=== PATIENT | male | born 1935 | race Caucasian/White ===

== ENCOUNTER 2017-07-21 12:00 | Inpatient (IN) ==
[2017-07-23] MEDS ORDERED: Mag Hydrox/Al Hydrox/Simeth 30 ML UDC PO PRN (00:21)
[2017-07-23 05:26] LABS: Basophils % 0.4 %; Eosinophils # 0.9 K/mcL (0.0-0.6); Eosinophils % 8.2 %; Hematocrit 46.3 % (37.5-50.1); Hemoglobin 16.3 g/dL (12.9-16.9); Immature Granulocytes % 0.3 % (0-4); Lymphocytes # 1.5 K/mcL (0.6-4.6); Lymphocytes % 14.3 %; Mean Corpuscular HGB Conc 35.2 g/dL (31.6-35.5); Mean Corpuscular Hemoglobin 31.8 pg (28.0-33.3); Mean Corpuscular Volume 90.4 fL (83.0-100.0); Mean Platelet Volume 10.6 fL (9.4-12.4); Monocytes # 0.9 K/mcL (0.0-1.3); Monocytes % 8.5 %; Neutrophils # 7.2 K/mcL (1.6-8.9); Platelet Count 216 K/mcL (140-400); Red Blood Count 5.12 M/mcL (4.19-5.50); Segmented Neutrophils % 68.3 %
[2017-07-23 05:45] LABS: BUN/Creatinine Ratio 26 (6-26); Blood Urea Nitrogen 26 mg/dL (8-26); Calcium 9.5 mg/dL (8.6-10.8); Carbon Dioxide 20 mEq/L (19-29); Chloride 105 mEq/L (98-109); Glucose 170 mg/dL (70-99); Osmolality,Calculated 295 (280-300); Potassium 4.6 mEq/L (3.5-4.5); Sodium 138 mEq/L (136-145); eGFR For African Americans > 60 (> 60); eGFR For Non-African Americans > 60 (> 60)
[2017-07-23] MEDS: *HR* Heparin 5,000 UNIT/ML VIAL SQ SCH ×2 (06:17→17:58)
[2017-07-23] MEDS: Insulin LISPRO 300 UNITS/3 ML VIAL SQ SCH ×4 (07:34→20:44)
[2017-07-23 07:39] LABS: INR 1.1; Prothrombin Time 12.1 Seconds (9.4-12.1)
[2017-07-23 07:42] LABS: Activated Partial Thrombo Time 33.5 Seconds (26.0-36.0)
[2017-07-23] MEDS: *HR* Metformin 500 MG TABLET PO SCH ×2 (09:22→17:58)
[2017-07-23] MEDS: amLODIPine 5 MG TABLET PO SCH ×2 (09:23→20:47)
--- NOTE | 2017-07-23 15:51 | Internal Med History&Physical ---
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 He will continue with supportive care and therapies to maintain his progress. I encouraged him to work hard and let him know it was a good sign that he is already improving, this close to onset of stroke. Answered his and family's questions. (2) Hypertension, essential, benign Current visit: Yes Status: Chronic Continue current medications and follow VS, etc. (3) Diabetes mellitus type 2, uncomplicated Current visit: Yes Status: Acute Stable per recent history. Will continue current medications, follow serial fingerstick glucoses and use sliding scale insulin. Qualifiers: Diabetes mellitus termite inspector insulin use: without termite inspector use Qualified Code(s): E11.9 - Type 2 diabetes mellitus without complications (4) Hyperlipidemia Current visit: Yes Status: Acute Continue statin therapy. See comments in HPI, above. Qualifiers: Hyperlipidemia type: unspecified Qualified Code(s): E78.5 - Hyperlipidemia , unspecified (5) Dyspepsia Current visit: Yes Status: Acute Etiology is uncertain. Syptoms are described as mild by patient and confirmed by family. While he already has liquid antactid ordered, will continue PRN ondansetron (Zofran) and will add PPI. Internal Medicine - H&P: HPI Chief complaint: Right sided weakness. Admitted From: Hospital to Hospital Transfer Plans for Post Hospital Care: Home History of present illness: Mr. Martinez is a 81 year old male transferred here from [facility] for ongoing rehabilitation services after an acute left hemispheric stroke. He feels he is making progress since the onset of his stroke and is pleased to procede with therapy. He denies incontinence of bowel or bladder and he believes that he is not having difficulty with swallowing, coughing, or choking. He has been experiencing some nausea but this seems to have more to do with heartburn-type symptoms. He denies other issues from ROS. Interestingly, family deny hyperlipidemia but he is on statin therapy. Uncertain as to insight and/or recent addition but will manage is if he has hyperlipidemia and continue statin therapy whether for historical diagnosis or new cerebrovascular management. Past Med Surg Social Fam HX - Past Medical History Source: patient, old records reviewed, obtained from family Medical history: CVA, diabetes, hypertension Psychiatric history: no psych history - Social History Smoking Status: Unknown if ever smoked Current living situation: Home - Independent Recent Out of Country Travel Within the Last 8 Weeks: No - Family History Mother History Unknown: Yes Internal Medicine - H&P: Meds Clopidogrel [Plavix] 75 mg PO DAILY 07/23/17 [History] Insulin LISPRO [HumaLOG] 0 units SQ TIDWM 07/23/17 [History] Lisinopril [Zestril] 10 mg PO DAILY 07/23/17 [History] Lovastatin 10 mg PO DAILY 07/23/17 [History] Metformin HCl [Fortamet] 500 mg PO BIDWM 07/23/17 [History] amLODIPine [Norvasc] 5 mg PO BID 07/23/17 [History] 3 Allergy/AdvReac Type Severity Reaction Status Date / Time No Known Allergies Allergy Verified 07/23/17 00:10 All Systems PM: A 10-system review of systems was performed and is negative for pertinent findings except as documented above in the HPI. - Constitutional Vitals: Temp Pulse Resp BP Pulse Ox 98.3 F 98 18 128/67 94 07/23/17 07:59 07/23/17 07:59 07/23/17 07:59 07/23/17 07:59 07/23/17 07:59 General appearance: Present: A&O X 3 Exam: Oriented to place and situation as well as name and family members but limited memory/ orientation to details. He attributes this to his stroke. - Head Head exam: Present: atraumatic, normocephalic - Eye Eye exam: Present: PERRL, conjuntiva pink, sclera anicteric Pupils: Present: PERRL - Neck Neck exam general surgery: Present: supple, trachea midline. Absent: lymphadenopathy, thyromegaly Additional comments: No carotid bruits appreciated. - Respiratory Respiratory exam: Present: CTAB. Absent: accessory muscle use, rhonchi, wheezes Additional comments: Has bibasilar rales. - Cardiovascular Cardiovascular exam: Present: RRR. Absent: diastolic murmur, rubs, systolic murmur - GI/Abdominal GI/Abdominal exam: Present: normal bowel sounds, soft, no peritoneal signs. Absent: distended, hepatomegaly, splenomegaly, tenderness Additional comments: Obese and therefore difficult to palpate deeply. Nontender, including epigastric region. - Extremities Exam Extremities exam: Present: warm, radial pulses palpable and symmetrical. Absent : calf tenderness, cyanotic, pedal edema - Neurological Exam Neurological exam: Present: no focal deficits. Absent: pronater drift, facial droop, speech deficit Additional comments: As per history, memory is diminished for details. He can remember his birthday year but not month or day. Cannot remember his address. Knows names of family , where he is, why he's here, etc. Right upper extremity weakness is 3+/5 and his right foot dorsiflexion is about 4+/5. Has mild right facial droop. - Psychiatric Psychiatric exam: Present: normal affect, normal mood. Absent: agitated - Skin Skin exam: Present: dry, intact Internal Med - H&P Results - Labs CBC & Chem 7: 07/24/17 06:00 07/24/17 06:00 Labs: Short CBC 07/23/17 Range/Units 05:10 WBC 10.6 (4.3-11.1) K/mcL Hgb 16.3 (12.9-16.9) g/dL Hct 46.3 (37.5-50.1) % Plt Count 216 (140-400) K/mcL Neutrophils # 7.2 (1.6-8.9) K/mcL BMP 07/23/17 05:10 Sodium 138 Potassium 4.6 H Chloride 105 Carbon Dioxide 20 BUN 26 Creatinine 0.99 Glucose 170 H Calcium 9.5
[2017-07-24] MEDS ORDERED: Ondansetron ODT 4 MG TAB.RAPDIS SL PRN (01:28)
[2017-07-24] MEDS: *HR* Heparin 5,000 UNIT/ML VIAL SQ SCH ×2 (04:48→17:41)
[2017-07-24 06:17] LABS: Basophils % 0.4 %; Eosinophils # 0.6 K/mcL (0.0-0.6); Eosinophils % 5.3 %; Hematocrit 44.1 % (37.5-50.1); Hemoglobin 15.4 g/dL (12.9-16.9); Immature Granulocytes % 0.4 % (0-4); Lymphocytes # 1.7 K/mcL (0.6-4.6); Lymphocytes % 15.3 %; Mean Corpuscular HGB Conc 34.9 g/dL (31.6-35.5); Mean Corpuscular Hemoglobin 31.2 pg (28.0-33.3); Mean Corpuscular Volume 89.5 fL (83.0-100.0); Mean Platelet Volume 10.3 fL (9.4-12.4); Monocytes # 1.1 K/mcL (0.0-1.3); Monocytes % 10.2 %; Platelet Count 258 K/mcL (140-400); Red Blood Count 4.93 M/mcL (4.19-5.50); Red Cell Distribution Width 12.1 % (11.5-14.5); Segmented Neutrophils % 68.4 %
[2017-07-24 06:20] LABS: Neutrophils # 7.7 K/mcL (1.6-8.9)
[2017-07-24 06:27] LABS: BUN/Creatinine Ratio 26 (6-26); Blood Urea Nitrogen 26 mg/dL (8-26); Calcium 9.3 mg/dL (8.6-10.8); Carbon Dioxide 19 mEq/L (19-29); Chloride 103 mEq/L (98-109); Glucose 164 mg/dL (70-99); Osmolality,Calculated 288 (280-300); Potassium 4.6 mEq/L (3.5-4.5); Sodium 135 mEq/L (136-145); eGFR For African Americans > 60 (> 60); eGFR For Non-African Americans > 60 (> 60)
[2017-07-24 09:12] LABS: Albumin 2.9 g/dL (3.5-5.0); Albumin/Globulin Ratio 0.7 (1.1-2.2); Bilirubin,Direct 0.2 mg/dL (0.0-0.5); Bilirubin,Indirect 0.4 mg/dL (0.0-1.2); Bilirubin,Total 0.6 mg/dL (0.2-1.2); Globulin 3.9 g/dL (2.4-3.5); Total Protein 6.8 g/dL (6.0-8.3)
[2017-07-24] MEDS: *HR* Metformin 500 MG TABLET PO SCH ×2 (09:54→17:41)
[2017-07-24] MEDS: amLODIPine 5 MG TABLET PO SCH ×2 (09:54→22:47)
[2017-07-24] MEDS: Insulin LISPRO 300 UNITS/3 ML VIAL SQ SCH ×4 (09:54→22:47)
--- NOTE | 2017-07-24 13:32 | Internal Med Progress Note ---
Date of Encounter: 07/24/17 Time of Encounter: 13:30 (All in addition to hemiplegia patient has significant cognitive deficits. He will answer his full name sometimes but if you say his first name and ask was last name is he cannot do that. He cannot comprehend so he definitely has some shoes along with occasional expressive. He is not oriented towards time place and location name or any of that. 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 Current Visit: Yes Status: Acute Assessment and plan: Evening CVA which I said causes a right hemiplegia and certainly there are cognitive deficits (2) Hypertension, essential, benign Current Visit: Yes Status: Chronic Assessment and plan: Blood pressure is well controlled (3) Diabetes mellitus type 2, uncomplicated Current Visit: Yes Status: Acute Assessment and plan: Following blood sugars Qualifiers: Diabetes mellitus assisted insulin use: without intermodal owner operator truck driver use Qualified Code(s): E11.9 - Type 2 diabetes mellitus without complications (4) Hyperlipidemia Current Visit: Yes Status: Acute Assessment and plan: This is noted history Qualifiers: Hyperlipidemia type: unspecified Qualified Code(s): E78.5 - Hyperlipidemia , unspecified (5) Dyspepsia Current Visit: Yes Status: Acute Assessment and plan: Occasional of dyspepsia complaints - Time Spent With Patient less than 15 minutes - Subjective Interval history: Patient in addition to his hemiplegia has cognitive disease. He is unable to be oriented towards name person place date etc. - Constitutional Vitals: Temp Pulse Resp BP Pulse Ox 97.3 F L 76 16 155/99 92 07/24/17 11:43 07/24/17 11:43 07/24/17 11:43 07/24/17 11:43 07/24/17 11:43 General appearance: Present: A&O X 3 - Head Head exam: Present: atraumatic, normal inspection, normocephalic - Neck Neck exam general surgery: Present: supple, trachea midline. Absent: lymphadenopathy - Respiratory Respiratory exam: Present: CTAB. Absent: accessory muscle use, rales, rhonchi, wheezes - Cardiovascular Cardiovascular exam: Present: RRR, +S1, +S2. Absent: diastolic murmur, gallop, rubs, systolic murmur - Neurological Exam Neurological exam: Present: CN II-XII intact, oriented X3, no focal deficits. Absent: pronater drift, facial droop, speech deficit Additional comments: She has a right hemiplegia. He also has right-sided neglect Internal Medicine: Result - Labs CBC & Chem 7: 07/24/17 06:00 07/24/17 06:00 Labs: Short CBC 07/24/17 Range/Units 06:00 WBC 11.2 H (4.3-11.1) K/mcL Hgb 15.4 (12.9-16.9) g/dL Hct 44.1 (37.5-50.1) % Plt Count 258 (140-400) K/mcL Neutrophils # 7.7 (1.6-8.9) K/mcL BMP 07/24/17 06:00 Sodium 135 L Potassium 4.6 H Chloride 103 Carbon Dioxide 19 BUN 26 Creatinine 1.01 Glucose 164 H Calcium 9.3 Liver Function 07/24/17 Range/Units 06:40 Total Bilirubin 0.6 (0.2-1.2) mg/dL Direct Bilirubin 0.2 (0.0-0.5) mg/dL AST 34 (5-34) Units/L ALT 21 (0-55) Units/L Alkaline Phosphatase 95 (38-126) Units/L Albumin 2.9 L (3.5-5.0) g/dL Lab looks decent - ABG Interpretation ABG results: PT/INR, D-dimer PT 12.1 Seconds (9.4-12.1) 07/23/17 07:10 Consult Discharge Plan - Plan Referrals: Jp Yan MD [Primary Care Provider] -
[2017-07-25] MEDS: *HR* Heparin 5,000 UNIT/ML VIAL SQ SCH ×2 (05:39→17:09)
[2017-07-25] MEDS: *HR* Metformin 500 MG TABLET PO SCH ×2 (08:51→17:09)
[2017-07-25] MEDS: Insulin LISPRO 300 UNITS/3 ML VIAL SQ SCH ×4 (08:51→22:44)
[2017-07-25] MEDS: amLODIPine 5 MG TABLET PO SCH ×2 (08:51→22:44)
--- NOTE | 2017-07-25 11:47 | Internal Med Progress Note ---
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 (2) Hypertension, essential, benign Current Visit: Yes Status: Chronic Assessment and plan: Blood pressure is well controlled at the moment (3) Diabetes mellitus type 2, uncomplicated Current Visit: Yes Status: Acute Qualifiers: Diabetes mellitus adjunct faculty for medical terminology insulin use: without adjunct faculty for medical terminology use Qualified Code(s): E11.9 - Type 2 diabetes mellitus without complications (4) Hyperlipidemia Current Visit: Yes Status: Acute Assessment and plan: By history Qualifiers: Hyperlipidemia type: unspecified Qualified Code(s): E78.5 - Hyperlipidemia , unspecified (5) Dyspepsia Current Visit: Yes Status: Acute Assessment and plan: No current complaints of epigastric pain or dyspepsia - Time Spent With Patient less than 15 minutes - Subjective Interval history: Patient in addition to his hemiplegia has cognitive disease. He is unable to be oriented towards name person place date etc. see speech notes. - Constitutional Vitals: Temp Pulse Resp BP Pulse Ox 98.8 F 96 16 126/75 94 07/25/17 07:28 07/25/17 07:28 07/25/17 07:28 07/25/17 07:28 07/25/17 07:28 General appearance: Present: A&O X 3 - Head Head exam: Present: atraumatic, normal inspection, normocephalic - Neck Neck exam general surgery: Present: supple, trachea midline. Absent: lymphadenopathy - Respiratory Respiratory exam: Present: CTAB. Absent: accessory muscle use, rales, rhonchi, wheezes - Cardiovascular Cardiovascular exam: Present: RRR, +S1, +S2. Absent: diastolic murmur, gallop, rubs, systolic murmur - GI/Abdominal GI/Abdominal exam: Present: normal bowel sounds, soft, no peritoneal signs. Absent: distended, tenderness - Neurological Exam Neurological exam: Present: abnormal gait, altered, CN II-XII intact, motor sensory deficit, oriented X3, no focal deficits. Absent: pronater drift, facial droop, speech deficit Additional comments: Speech is slow and deliberate. In speech reports to us that cognitively the patient is not intact Internal Medicine: Result - Labs CBC & Chem 7: 07/24/17 06:00 07/24/17 06:00 Labs: Lab looks stable - ABG Interpretation ABG results: PT/INR, D-dimer PT 12.1 Seconds (9.4-12.1) 07/23/17 07:10 Consult Discharge Plan - Plan Referrals: Jp Yan MD [Primary Care Provider] -
[2017-07-26] MEDS: *HR* Heparin 5,000 UNIT/ML VIAL SQ SCH ×2 (06:39→17:20)
[2017-07-26] MEDS: Insulin LISPRO 300 UNITS/3 ML VIAL SQ SCH ×4 (08:58→20:55)
[2017-07-26] MEDS: *HR* Metformin 500 MG TABLET PO SCH ×2 (08:59→17:20)
[2017-07-26] MEDS: amLODIPine 5 MG TABLET PO SCH ×2 (08:59→20:53)
--- NOTE | 2017-07-26 14:01 | Physcial Medicine-Consult Note ---
Date of Encounter: 07/26/17 Time of Encounter: 13:56 Physical Medicine - AP (1) CVA (cerebral vascular accident) Status: Acute Assessment and plan: 1. Mr. Martinez is suffering from significant impairment due to his CVA. Per therapy, he is currently max A for ADLs, bed transfers and mobility. He has initiated some movement in the right upper limb. He has cognitive impairment and is disoriented at times. He is 80% accurate for yes/no questions. We will continue with intensive PT/ST/OT/ and TR to address endurance, transfers, gait, safety, ADLs and cognition. ANTONIO 08/23/17. Code(s): I63.9 - Cerebral infarction, unspecified SNOMED Code(s): 523101101 Physical Medicine - HPI - Data of Consult Consult date: 07/26/17 Requesting Physician: Teofilo Ng DO Primary Care Provider: Jp Yan - Consult Narrative Reason for consult: CVA History of present illness: Mr. Martinez is a 81 year old male who presented to [facility] 07/[facility]/17 after being discovered by his daughter in bed. He was unable to speak with right sided weakness. He was last seen at 9pm the night prior and had no deficits at that time. Initial head CT revealed a subacute left occipital infarct, no hemorrhage. An mri of his brain revealed an acute cortical infarction involving the left CAREER AND GUIDANCE COUNSELOR territory-including the left temporal and occipital lobes and left thalamus. Patient was stabilized and transferred for inpatient rehabilitation. CC: Teofilo Ng DO Past Med Surg Social Fam HX - Past Medical History Medical history: CVA, diabetes, hypertension Psychiatric history: no psych history - Social History Smoking Status: Unknown if ever smoked - Family History Mother History Unknown: Yes Medications and Allergies Clopidogrel [Plavix] 75 mg PO DAILY 07/23/17 [History] Insulin LISPRO [HumaLOG] 0 units SQ TIDWM 07/23/17 [History] Lisinopril [Zestril] 10 mg PO DAILY 07/23/17 [History] Lovastatin 10 mg PO DAILY 07/23/17 [History] Metformin HCl [Fortamet] 500 mg PO BIDWM 07/23/17 [History] amLODIPine [Norvasc] 5 mg PO BID 07/23/17 [History] 3 Allergy/AdvReac Type Severity Reaction Status Date / Time No Known Allergies Allergy Verified 07/23/17 00:10 ROS unobtainable: due to mental status Physical Medicine - Exam - Constitutional Vitals: Temp Pulse Resp BP Pulse Ox 97.3 F L 79 16 101/67 95 07/26/17 08:00 07/26/17 08:00 07/26/17 08:00 07/26/17 08:00 07/26/17 08:00 Exam: Patient is somnolent, rousable. He does not verbally respond to questions or commands. - Head Head exam: Present: atraumatic, normal inspection - Respiratory Respiratory exam: Present: CTAB - Cardiovascular Cardiovascular exam: Present: RRR - GI/Abdominal GI/Abdominal exam: Present: normal bowel sounds, soft. Absent: tenderness - Extremities Exam Extremities exam: Present: tenderness. Absent: calf tenderness Additional comments: No edema, no erythema. Patient too somnolent to participate with muscle strength testing. Physical Medicine - Results - Labs CBC & Chem 7: 07/24/17 06:00 07/24/17 06:00 Consult Discharge Plan - Plan Referrals: Jp Yan MD [Primary Care Provider] -
--- NOTE | 2017-07-26 14:16 | Psychological Evaluation ---
Date of Encounter: 07/26/17 Time of Encounter: 10:30 History of Present Illness History of present illness: Mr. Martinez is a 81 year old male who suffered a CVA secondary to occlusion of the left middle cerebtal artery. Past Medical History - Psychiatric History Psychiatric history: Reports: no psych history (PMH includes HTN diabetes, HCL and dyspepsia.) Home Medications and Allergies Clopidogrel [Plavix] 75 mg PO DAILY 07/23/17 [History] Insulin LISPRO [HumaLOG] 0 units SQ TIDWM 07/23/17 [History] Lisinopril [Zestril] 10 mg PO DAILY 07/23/17 [History] Lovastatin 10 mg PO DAILY 07/23/17 [History] Metformin HCl [Fortamet] 500 mg PO BIDWM 07/23/17 [History] amLODIPine [Norvasc] 5 mg PO BID 07/23/17 [History] 3 Allergy/AdvReac Type Severity Reaction Status Date / Time No Known Allergies Allergy Verified 07/23/17 00:10 Social History - Alcohol Use Alcohol Use: unknown (The patient was minimally responsive during clinical interview. He was not able to report social, occupational or educational histories.) Cognitive/Emotional Assessment - Cognitive Ability Level of Alertness: Lethargic (The patient was not oriented to time or place. He did not know how long he was or how many children he had. Recent and remote memories were very poor.) Assessment & Plan - Prognosis Prognosis: Fair (Minimal responsivity precludes assessment of subsequent treatment at this time.)
[2017-07-27] MEDS: *HR* Heparin 5,000 UNIT/ML VIAL SQ SCH ×2 (05:12→17:06)
[2017-07-27] MEDS: Insulin LISPRO 300 UNITS/3 ML VIAL SQ SCH ×4 (07:28→22:14)
[2017-07-27] MEDS: amLODIPine 5 MG TABLET PO SCH ×2 (09:06→19:55)
[2017-07-27] MEDS: *HR* Metformin 500 MG TABLET PO SCH ×2 (09:07→17:06)
--- NOTE | 2017-07-27 11:54 | Internal Med Progress Note ---
Date of Encounter: 07/27/17 Time of Encounter: 11:52 - Assessment and plan (1) Stroke due to occlusion of left middle cerebral artery Current Visit: Yes Status: Acute Assessment and plan: Short of PT OT TR and speech. (2) Hypertension, essential, benign Current Visit: Yes Status: Chronic Assessment and plan: On exception blood pressure been very stable (3) Diabetes mellitus type 2, uncomplicated Current Visit: Yes Status: Acute Assessment and plan: Blood sugars are doing well. There Qualifiers: Diabetes mellitus skilled nursing insulin use: without termite control service representative use Qualified Code(s): E11.9 - Type 2 diabetes mellitus without complications (4) Hyperlipidemia Current Visit: Yes Status: Acute Assessment and plan: By history Qualifiers: Hyperlipidemia type: unspecified Qualified Code(s): E78.5 - Hyperlipidemia , unspecified (5) Dyspepsia Current Visit: Yes Status: Acute Assessment and plan: No current reports of problems - Time Spent With Patient less than 15 minutes - Subjective Interval history: Patient in addition to his hemiplegia has cognitive disease. He is unable to be oriented towards name person place date etc. see speech notes. Working daily with PT OT and TR. Along with our speech therapist. Is ambulating the mckeon walker now which is fairly significant improvement - Constitutional Vitals: Temp Pulse Resp BP Pulse Ox 97.3 F L 80 16 114/64 93 07/27/17 08:00 07/27/17 08:00 07/27/17 08:00 07/27/17 11:17 07/27/17 08:00 General appearance: Present: A&O X 3 - Head Head exam: Present: atraumatic, normal inspection, normocephalic - Neck Neck exam general surgery: Present: supple, trachea midline. Absent: lymphadenopathy - Respiratory Respiratory exam: Present: CTAB. Absent: accessory muscle use, rales, rhonchi, wheezes - Cardiovascular Cardiovascular exam: Present: RRR, +S1, +S2. Absent: diastolic murmur, gallop, rubs, systolic murmur Internal Medicine: Result - Labs CBC & Chem 7: 07/24/17 06:00 07/24/17 06:00 Labs: Labs look stable - ABG Interpretation ABG results: PT/INR, D-dimer PT 12.1 Seconds (9.4-12.1) 07/23/17 07:10 Consult Discharge Plan - Plan Referrals: Jp Yan MD [Primary Care Provider] -
[2017-07-28] MEDS: *HR* Heparin 5,000 UNIT/ML VIAL SQ SCH ×2 (05:07→17:04)
[2017-07-28] MEDS: Insulin LISPRO 300 UNITS/3 ML VIAL SQ SCH ×4 (09:28→21:59)
[2017-07-28] MEDS: amLODIPine 5 MG TABLET PO SCH ×2 (09:55→21:57)
[2017-07-28] MEDS: *HR* Metformin 500 MG TABLET PO SCH ×2 (09:55→17:04)
--- NOTE | 2017-07-28 14:18 | Internal Med Progress Note ---
Date of Encounter: 07/28/17 Time of Encounter: 14:16 - Assessment and plan (1) Stroke due to occlusion of left middle cerebral artery Current Visit: Yes Status: Acute Assessment and plan: Status significant [place] with cognitive and dysphonia. Her slow response (2) Hypertension, essential, benign Current Visit: Yes Status: Chronic Assessment and plan: Pressures control (3) Diabetes mellitus type 2, uncomplicated Current Visit: Yes Status: Acute Assessment and plan: Blood sugars are followed Qualifiers: Diabetes mellitus fpc insulin use: without fpc use Qualified Code(s): E11.9 - Type 2 diabetes mellitus without complications (4) Hyperlipidemia Current Visit: Yes Status: Acute Qualifiers: Hyperlipidemia type: unspecified Qualified Code(s): E78.5 - Hyperlipidemia , unspecified (5) Dyspepsia Current Visit: Yes Status: Acute Assessment and plan: Not clear the extent of this. - Time Spent With Patient less than 15 minutes - Subjective Interval history: Patient in addition to his hemiplegia has cognitive disease. He is unable to be oriented towards name person place date etc. see speech notes. Working daily with PT OT and TR. Along with our speech therapist. Is ambulating the mckeon walker now which is fairly significant improvement. - Constitutional Vitals: Temp Pulse Resp BP Pulse Ox 97.6 F 63 16 114/71 95 07/28/17 06:50 07/28/17 06:50 07/28/17 06:50 07/28/17 06:50 07/28/17 06:50 General appearance: Present: A&O X 3 - Head Head exam: Present: atraumatic, normal inspection, normocephalic - Neck Neck exam general surgery: Present: supple, trachea midline. Absent: lymphadenopathy - Respiratory Respiratory exam: Present: CTAB. Absent: accessory muscle use, rales, rhonchi, wheezes - Cardiovascular Cardiovascular exam: Present: RRR, +S1, +S2. Absent: diastolic murmur, gallop, rubs, systolic murmur Internal Medicine: Result - Labs CBC & Chem 7: 07/24/17 06:00 07/24/17 06:00 Labs: Lab is stable - ABG Interpretation ABG results: PT/INR, D-dimer PT 12.1 Seconds (9.4-12.1) 07/23/17 07:10 - VTE Documentation of Mechanical Device: Graduated compression elastic hosiery Consult Discharge Plan - Plan Referrals: Jp Yan MD [Primary Care Provider] -
[2017-07-29] MEDS: *HR* Heparin 5,000 UNIT/ML VIAL SQ SCH ×2 (05:32→17:28)
[2017-07-29] MEDS: Insulin LISPRO 300 UNITS/3 ML VIAL SQ SCH ×4 (08:09→21:32)
[2017-07-29] MEDS: amLODIPine 5 MG TABLET PO SCH ×2 (08:09→21:34)
[2017-07-29] MEDS: *HR* Metformin 500 MG TABLET PO SCH ×2 (08:10→17:29)
--- NOTE | 2017-07-29 13:30 | Internal Med Progress Note ---
Date of Encounter: 07/29/17 Time of Encounter: 13:25 - Assessment and plan (1) Stroke due to occlusion of left middle cerebral artery Current Visit: Yes Status: Acute Assessment and plan: Status significant [place] with cognitive and dysphonia. Slow response. Continue to work with therapists. (2) Hypertension, essential, benign Current Visit: Yes Status: Chronic Assessment and plan: Continue current regimen. (3) Diabetes mellitus type 2, uncomplicated Current Visit: Yes Status: Acute Assessment and plan: Continue current regimen. Qualifiers: Diabetes mellitus terminal operator insulin use: without terminal operator use Qualified Code(s): E11.9 - Type 2 diabetes mellitus without complications - Time Spent With Patient less than 15 minutes - Subjective Interval history: Feeling "alright." No particular complaints. - Constitutional Vitals: Temp Pulse Resp BP Pulse Ox 97.9 F 88 16 107/63 93 07/29/17 07:26 07/29/17 07:26 07/29/17 07:26 07/29/17 07:26 07/29/17 07:26 General appearance: Present: A&O X 3 Exam: Gen: Resting comfortably in bed. Alert and answering most questions appropriately. NAD. HEENT: NCAT. Neck: No palpable lymphadenopathy or thyromegaly. CV: RRR, S1S2. 2/6, systolic murmur appreciated. Capillary refill < 2 seconds. Pulm: CTAB. Abd: (+)BS. NDNT. Neuro: RUE and RLE weakness noted. Skin: No rash. Ext: No pitting edema. Internal Medicine: Result - Labs CBC & Chem 7: 07/24/17 06:00 07/24/17 06:00 - ABG Interpretation ABG results: PT/INR, D-dimer PT 12.1 Seconds (9.4-12.1) 07/23/17 07:10 - VTE Documentation of Mechanical Device: Graduated compression elastic hosiery Consult Discharge Plan - Plan Referrals: Jp Yan MD [Primary Care Provider] -
[2017-07-30] MEDS: *HR* Heparin 5,000 UNIT/ML VIAL SQ SCH ×2 (05:52→16:57)
[2017-07-30] MEDS: Insulin LISPRO 300 UNITS/3 ML VIAL SQ SCH ×4 (09:00→21:00)
[2017-07-30] MEDS: *HR* Metformin 500 MG TABLET PO SCH ×2 (09:02→16:57)
[2017-07-30] MEDS: amLODIPine 5 MG TABLET PO SCH ×2 (09:02→21:18)
--- NOTE | 2017-07-30 11:30 | Internal Med Progress Note ---
Date of Encounter: 07/30/17 Time of Encounter: 10:40 - Assessment and plan (1) Stroke due to occlusion of left middle cerebral artery Current Visit: Yes Status: Acute Assessment and plan: Status significant [place] with cognitive and dysphonia. Slow response. Continue to work with therapists. (2) Hypertension, essential, benign Current Visit: Yes Status: Chronic Assessment and plan: Continue current regimen. (3) Diabetes mellitus type 2, uncomplicated Current Visit: Yes Status: Acute Assessment and plan: Continue current regimen. Qualifiers: Diabetes mellitus petroleum terminal plant operator insulin use: without petroleum terminal plant operator use Qualified Code(s): E11.9 - Type 2 diabetes mellitus without complications - Subjective Interval history: Feeling "alright." No particular complaints/concerns. No pain. - Constitutional Vitals: Temp Pulse Resp BP Pulse Ox 97.6 F 78 15 118/68 94 07/30/17 08:00 07/30/17 08:00 07/30/17 08:00 07/30/17 08:00 07/30/17 08:00 General appearance: Present: A&O X 3 Exam: Gen: Resting comfortably in bed. Alert and answering most questions appropriately. NAD. HEENT: NCAT. Neck: No palpable lymphadenopathy or thyromegaly. CV: RRR, S1S2. 2/6, systolic murmur appreciated. Capillary refill < 2 seconds. Pulm: CTAB. Abd: (+)BS. NDNT. Neuro: RUE and RLE weakness noted. Skin: No rash. Ext: No pitting edema. Internal Medicine: Result - Labs CBC & Chem 7: 07/24/17 06:00 07/24/17 06:00 - ABG Interpretation ABG results: PT/INR, D-dimer PT 12.1 Seconds (9.4-12.1) 07/23/17 07:10 - VTE Documentation of Mechanical Device: Graduated compression elastic hosiery Consult Discharge Plan - Plan Referrals: Jp Yan MD [Primary Care Provider] -
[2017-07-30] MEDS: Acetaminophen 325 MG TABLET PO PRN (21:22)
[2017-07-31] MEDS: *HR* Heparin 5,000 UNIT/ML VIAL SQ SCH ×2 (05:07→17:22)
[2017-07-31 05:46] LABS: Basophils # 0.1 K/mcL (0.0-0.2); Basophils % 0.5 %; Eosinophils # 0.8 K/mcL (0.0-0.6); Eosinophils % 7.3 %; Hematocrit 45.6 % (37.5-50.1); Hemoglobin 15.6 g/dL (12.9-16.9); Immature Granulocytes % 0.7 % (0-4); Lymphocytes # 2.3 K/mcL (0.6-4.6); Lymphocytes % 20.5 %; Mean Corpuscular HGB Conc 34.2 g/dL (31.6-35.5); Mean Corpuscular Hemoglobin 31.6 pg (28.0-33.3); Mean Corpuscular Volume 92.5 fL (83.0-100.0); Mean Platelet Volume 10.6 fL (9.4-12.4); Monocytes % 9.1 %; Neutrophils # 6.9 K/mcL (1.6-8.9); Platelet Count 303 K/mcL (140-400); Red Blood Count 4.93 M/mcL (4.19-5.50); Red Cell Distribution Width 12.7 % (11.5-14.5); Segmented Neutrophils % 61.9 %
[2017-07-31 06:00] LABS: Calcium 9.8 mg/dL (8.6-10.8); Potassium 5.6 mEq/L (3.5-4.5)
[2017-07-31] MEDS: Insulin LISPRO 300 UNITS/3 ML VIAL SQ SCH ×4 (08:09→21:08)
[2017-07-31] MEDS: *HR* Metformin 500 MG TABLET PO SCH ×2 (08:09→17:22)
[2017-07-31] MEDS: amLODIPine 5 MG TABLET PO SCH ×2 (08:09→21:09)
--- NOTE | 2017-07-31 14:14 | Internal Med Progress Note ---
Date of Encounter: 07/31/17 Time of Encounter: 14:12 - Assessment and plan (1) Stroke due to occlusion of left middle cerebral artery Current Visit: Yes Status: Acute (2) Hypertension, essential, benign Current Visit: No Status: Chronic Assessment and plan: Blood pressures well controlled (3) Diabetes mellitus type 2, uncomplicated Current Visit: Yes Status: Acute Assessment and plan: Following blood sugar Qualifiers: Diabetes mellitus director long term care insulin use: without long-term use Qualified Code(s): E11.9 - Type 2 diabetes mellitus without complications (4) Hyperlipidemia Current Visit: Yes Status: Acute Assessment and plan: Noted by his Qualifiers: Hyperlipidemia type: unspecified Qualified Code(s): E78.5 - Hyperlipidemia , unspecified (5) Dyspepsia Current Visit: Yes Status: Acute Assessment and plan: No current complaint noted - Time Spent With Patient less than 15 minutes - Subjective Interval history: Patient has significant symptoms of cerebrovascular disease. Ischemic CVA. Significant neglect to the affected side. Cognitively he is not intact - Constitutional Vitals: Temp Pulse Resp BP Pulse Ox 97.7 F 87 18 111/54 92 07/31/17 07:48 07/31/17 07:48 07/30/17 19:32 07/31/17 07:48 07/31/17 07:48 General appearance: Present: A&O X 3 - Head Head exam: Present: atraumatic, normal inspection, normocephalic - Neck Neck exam general surgery: Present: supple, trachea midline. Absent: lymphadenopathy - Respiratory Respiratory exam: Present: CTAB. Absent: accessory muscle use, rales, rhonchi, wheezes - Cardiovascular Cardiovascular exam: Present: RRR, +S1, +S2. Absent: diastolic murmur, gallop, rubs, systolic murmur - GI/Abdominal GI/Abdominal exam: Present: normal bowel sounds, soft, no peritoneal signs. Absent: distended, tenderness Internal Medicine: Result - Labs CBC & Chem 7: 07/31/17 05:20 07/31/17 05:20 Labs: Short CBC 07/31/17 Range/Units 05:20 WBC 11.2 H (4.3-11.1) K/mcL Hgb 15.6 (12.9-16.9) g/dL Hct 45.6 (37.5-50.1) % Plt Count 303 (140-400) K/mcL Neutrophils # 6.9 (1.6-8.9) K/mcL BMP 07/31/17 05:20 Sodium 139 Potassium 5.6 H Chloride 105 Carbon Dioxide 24 BUN 44 H Creatinine 1.56 H Glucose 159 H Calcium 9.8 Need to follow BUN and creatinine. - ABG Interpretation ABG results: PT/INR, D-dimer PT 12.1 Seconds (9.4-12.1) 07/23/17 07:10 - VTE Documentation of Mechanical Device: Graduated compression elastic hosiery Consult Discharge Plan - Plan Referrals: Jp Yan MD [Primary Care Provider] -
[2017-07-31] MEDS: Acetaminophen 325 MG TABLET PO PRN (21:09)
[2017-08-01] MEDS: *HR* Heparin 5,000 UNIT/ML VIAL SQ SCH ×2 (05:32→17:04)
[2017-08-01 05:56] LABS: Calcium 9.4 mg/dL (8.6-10.8)
[2017-08-01] MEDS: Insulin LISPRO 300 UNITS/3 ML VIAL SQ SCH ×4 (09:04→20:23)
[2017-08-01] MEDS: amLODIPine 5 MG TABLET PO SCH ×2 (09:09→20:01)
[2017-08-01] MEDS: *HR* Metformin 500 MG TABLET PO SCH ×2 (09:10→17:04)
--- NOTE | 2017-08-01 15:46 | Internal Med Progress Note ---
Date of Encounter: 08/01/17 Time of Encounter: 15:44 - Assessment and plan (1) Stroke due to occlusion of left middle cerebral artery Current Visit: Yes Status: Acute Assessment and plan: No significant bit of change. He is working steadily with the therapist (2) Hypertension, essential, benign Current Visit: No Status: Chronic Assessment and plan: Blood pressure is well controlled (3) Diabetes mellitus type 2, uncomplicated Current Visit: Yes Status: Acute Assessment and plan: Following blood sugars Qualifiers: Diabetes mellitus dedicated intermodal truck driver insulin use: without dedicated intermodal truck driver use Qualified Code(s): E11.9 - Type 2 diabetes mellitus without complications (4) Hyperlipidemia Current Visit: Yes Status: Acute Assessment and plan: Other risk factor is chronic Qualifiers: Hyperlipidemia type: unspecified Qualified Code(s): E78.5 - Hyperlipidemia , unspecified (5) Dyspepsia Current Visit: Yes Status: Acute Assessment and plan: No complaints currently - Time Spent With Patient less than 15 minutes - Subjective Interval history: He still very slow and slow responding. He occasionally gets irritated when the staff insists upon him moving his leg etc. - Constitutional Vitals: Temp Pulse Resp BP Pulse Ox 97.8 F 95 16 121/72 93 08/01/17 07:44 08/01/17 07:44 07/31/17 19:00 08/01/17 07:44 08/01/17 07:44 General appearance: Present: A&O X 3 - Head Head exam: Present: atraumatic, normal inspection, normocephalic - Neck Neck exam general surgery: Present: supple, trachea midline. Absent: lymphadenopathy - Respiratory Respiratory exam: Present: CTAB. Absent: accessory muscle use, rales, rhonchi, wheezes - Cardiovascular Cardiovascular exam: Present: RRR, +S1, +S2. Absent: diastolic murmur, gallop, rubs, systolic murmur - GI/Abdominal GI/Abdominal exam: Present: normal bowel sounds, soft, no peritoneal signs. Absent: distended, tenderness Internal Medicine: Result - Labs CBC & Chem 7: 07/31/17 05:20 08/01/17 05:25 Labs: BMP 08/01/17 05:25 Sodium 135 L Potassium 5.0 H Chloride 102 Carbon Dioxide 25 BUN 46 H Creatinine 1.53 H Glucose 151 H Calcium 9.4 Watch BUN and creatinine - ABG Interpretation ABG results: PT/INR, D-dimer PT 12.1 Seconds (9.4-12.1) 07/23/17 07:10 - VTE Documentation of Mechanical Device: Graduated compression elastic hosiery Consult Discharge Plan - Plan Referrals: Jp Yan MD [Primary Care Provider] -
[2017-08-01] MEDS: Acetaminophen 325 MG TABLET PO PRN (17:04)
[2017-08-02] MEDS: *HR* Heparin 5,000 UNIT/ML VIAL SQ SCH ×2 (05:16→19:04)
[2017-08-02] MEDS: Insulin LISPRO 300 UNITS/3 ML VIAL SQ SCH ×4 (08:26→21:53)
[2017-08-02] MEDS: *HR* Metformin 500 MG TABLET PO SCH ×2 (08:26→19:04)
[2017-08-02] MEDS: amLODIPine 5 MG TABLET PO SCH ×2 (08:26→21:56)
--- NOTE | 2017-08-02 12:53 | Rehab Psychology Progress Note ---
Date of Encounter: 08/02/17 Time of Encounter: 12:30 Subjective - Symptoms Symptoms: Patient was not oriented to time, place or purpose. He was not sure if he had a CVA. Responses were inconsistent. He was not able to initiate or sustain conversation. Objective - WHODAS Functional Impairment Concentration, Problem-solving, Communication: None (Cognition was sustanially impaired. The patient was not able to respond appropriately to questions.) Assessment and Plan - Response to Treatment Response to Treatment: Improved (Mr. Martinez is not an appropriate candidate for any level of psychotherapy. Will monitor for improvement and intervene when appropriate.)
--- NOTE | 2017-08-02 13:44 | Physical Med Progress Note ---
Date of Encounter: 08/03/17 Time of Encounter: 13:32 Assessment and Plan (1) CVA (cerebral vascular accident) Current Visit: Yes Status: Acute Qualifiers: CVA mechanism: unspecified Qualified Code(s): I63.9 - Cerebral infarction, unspecified Physical Medicine-PN: Subj Interval history: PMR PCC Note Mr. Martinez is suffering from irritation from his adult diaper. Suspect allergic reaction. He is focused on his pain while seated in a wheelchair. Patient able to roll to side with min A, mod A to scoot on therapy table. Sit to stand is max A with verbal cues. He requires maxA for wheelchair positioning. Patient is oriented to person and month. Plan to continue with therapies. He has made minimal progress. We will change his discharge date to 08/09/17. - Constitutional Vitals: Vital Signs Temp Pulse Resp BP Pulse Ox 08/02/17 08:00 98.2 F 91 15 97/61 92 08/01/17 20:14 97.8 F 75 16 102/56 96 Intake and Output 08/01/17 08/02/17 08/02/17 23:59 07:59 15:59 Intake Total 120 / 120 340 / 340 Balance 120 / 120 340 / 340 Intake: Oral 120 / 120 340 / 340 Other: Meal Dinner Lunch Percent of Meal Consumed 20% 50% Stool Size Large Stool Consistency loose Stool Color Brown # Urine Diapers 1 1 # Bowel Movement Diapers 1 Blood Glucose* 154 172 Physical Medicine-PN: Obj Data - Labs CBC & Chem 7: 07/31/17 05:20 08/01/17 05:25 Labs: Laboratory Results - last 24 hr 08/01/17 08/01/17 08/02/17 16:12 20:22 11:13 POC Glucose 144 H 154 H 172 H - ABG Interpretation ABG results: PT/INR, D-dimer PT 12.1 Seconds (9.4-12.1) 07/23/17 07:10 - VTE Documentation of Mechanical Device: Graduated compression elastic hosiery Consult Discharge Plan - Plan Referrals: Jp Yan MD [Primary Care Provider] -
[2017-08-03] MEDS: *HR* Heparin 5,000 UNIT/ML VIAL SQ SCH ×2 (06:07→18:01)
[2017-08-03] MEDS: Insulin LISPRO 300 UNITS/3 ML VIAL SQ SCH ×4 (09:03→23:05)
[2017-08-03] MEDS: *HR* Metformin 500 MG TABLET PO SCH ×2 (09:05→18:01)
[2017-08-03] MEDS: amLODIPine 5 MG TABLET PO SCH ×2 (09:05→23:02)
--- NOTE | 2017-08-03 14:08 | Internal Med Progress Note ---
Date of Encounter: 08/03/17 Time of Encounter: 14:06 - Assessment and plan (1) Stroke due to occlusion of left middle cerebral artery Current Visit: Yes Status: Acute Assessment and plan: very significant ischemic CVA (2) Hypertension, essential, benign Current Visit: No Status: Chronic Assessment and plan: Blood pressure is well controlled (3) Diabetes mellitus type 2, uncomplicated Current Visit: Yes Status: Acute Assessment and plan: Following blood sugar Qualifiers: Diabetes mellitus superintendent terminal insulin use: without chcf use Qualified Code(s): E11.9 - Type 2 diabetes mellitus without complications (4) Hyperlipidemia Current Visit: Yes Status: Acute Assessment and plan: History Qualifiers: Hyperlipidemia type: unspecified Qualified Code(s): E78.5 - Hyperlipidemia , unspecified (5) Dyspepsia Current Visit: Yes Status: Acute Assessment and plan: Not getting any complaints of this. - Time Spent With Patient less than 15 minutes - Subjective Interval history: After PCC conference feel that the improvement is his minimal. He will need long-term care. So he will be going to an ECF. - Constitutional Vitals: Temp Pulse Resp BP Pulse Ox 97.6 F 80 16 100/53 96 08/03/17 07:40 08/03/17 07:40 08/03/17 07:40 08/03/17 07:40 08/03/17 07:40 General appearance: Present: A&O X 3 - Head Head exam: Present: atraumatic, normal inspection, normocephalic - Neck Neck exam general surgery: Present: supple, trachea midline. Absent: lymphadenopathy - Respiratory Respiratory exam: Present: CTAB. Absent: accessory muscle use, rales, rhonchi, wheezes - Cardiovascular Cardiovascular exam: Present: RRR, +S1, +S2. Absent: diastolic murmur, gallop, rubs, systolic murmur Internal Medicine: Result - Labs CBC & Chem 7: 07/31/17 05:20 08/01/17 05:25 - ABG Interpretation ABG results: PT/INR, D-dimer PT 12.1 Seconds (9.4-12.1) 07/23/17 07:10 - VTE Documentation of Mechanical Device: Graduated compression elastic hosiery Consult Discharge Plan - Plan Referrals: Jp Yan MD [Primary Care Provider] -
[2017-08-04] MEDS: *HR* Heparin 5,000 UNIT/ML VIAL SQ SCH ×2 (05:38→18:25)
[2017-08-04] MEDS: Insulin LISPRO 300 UNITS/3 ML VIAL SQ SCH ×4 (08:17→20:22)
[2017-08-04] MEDS: *HR* Metformin 500 MG TABLET PO SCH ×2 (08:17→18:25)
[2017-08-04] MEDS: amLODIPine 5 MG TABLET PO SCH ×2 (08:17→20:23)
--- NOTE | 2017-08-04 11:28 | Internal Med Progress Note ---
Date of Encounter: 08/04/17 Time of Encounter: 11:25 - Assessment and plan (1) Stroke due to occlusion of left middle cerebral artery Current Visit: Yes Status: Acute Assessment and plan: Significant ischemic stroke patient is really had minimal progress (2) Hypertension, essential, benign Current Visit: No Status: Chronic Assessment and plan: Blood pressures well controlled (3) Diabetes mellitus type 2, uncomplicated Current Visit: Yes Status: Acute Assessment and plan: The following blood sugars Qualifiers: Diabetes mellitus terminal makeup operator insulin use: without terminal makeup operator use Qualified Code(s): E11.9 - Type 2 diabetes mellitus without complications (4) Hyperlipidemia Current Visit: Yes Status: Acute Qualifiers: Hyperlipidemia type: unspecified Qualified Code(s): E78.5 - Hyperlipidemia , unspecified (5) Dyspepsia Current Visit: Yes Status: Acute Assessment and plan: No complaints of above - Time Spent With Patient less than 15 minutes - Subjective Interval history: Not much change after devastating CVA - Constitutional Vitals: Temp Pulse Resp BP Pulse Ox 97.6 F 72 16 138/85 94 08/04/17 07:00 08/04/17 07:00 08/04/17 07:00 08/04/17 07:00 08/04/17 07:00 General appearance: Present: A&O X 1, A&O X 3 - Head Head exam: Present: atraumatic, normal inspection, normocephalic - Neck Neck exam general surgery: Present: supple, trachea midline. Absent: lymphadenopathy - Respiratory Respiratory exam: Present: CTAB. Absent: accessory muscle use, rales, rhonchi, wheezes - Cardiovascular Cardiovascular exam: Present: RRR, +S1, +S2. Absent: diastolic murmur, gallop, rubs, systolic murmur - GI/Abdominal GI/Abdominal exam: Present: normal bowel sounds, soft, no peritoneal signs. Absent: distended, tenderness Internal Medicine: Result - Labs CBC & Chem 7: 07/31/17 05:20 08/01/17 05:25 Labs: Labs stable follow BUN/creatinine but that appears to be chronic - ABG Interpretation ABG results: PT/INR, D-dimer PT 12.1 Seconds (9.4-12.1) 07/23/17 07:10 - VTE Documentation of Mechanical Device: Graduated compression elastic hosiery Consult Discharge Plan - Plan Referrals: Jp Yan MD [Primary Care Provider] -
[2017-08-05] MEDS: *HR* Heparin 5,000 UNIT/ML VIAL SQ SCH ×2 (04:56→17:32)
[2017-08-05] MEDS: Insulin LISPRO 300 UNITS/3 ML VIAL SQ SCH ×4 (08:07→19:54)
[2017-08-05] MEDS: *HR* Metformin 500 MG TABLET PO SCH ×2 (09:20→17:32)
[2017-08-05] MEDS: amLODIPine 5 MG TABLET PO SCH ×2 (09:20→20:06)
--- NOTE | 2017-08-05 10:00 | Internal Med Progress Note ---
Date of Encounter: 08/05/17 Time of Encounter: 09:58 - Assessment and plan (1) CVA (cerebral vascular accident) Current Visit: Yes Status: Acute Assessment and plan: stable in rehab Qualifiers: CVA mechanism: unspecified Qualified Code(s): I63.9 - Cerebral infarction, unspecified (2) Diabetes mellitus type 2, uncomplicated Current Visit: Yes Status: Chronic Assessment and plan: on meds stable adjust meds as needed Qualifiers: Diabetes mellitus retirement insulin use: without retirement use Qualified Code(s): E11.9 - Type 2 diabetes mellitus without complications (3) Hyperlipidemia Current Visit: Yes Status: Chronic Qualifiers: Hyperlipidemia type: unspecified Qualified Code(s): E78.5 - Hyperlipidemia , unspecified (4) Hypertension, essential, benign Current Visit: No Status: Chronic Assessment and plan: stable continue meds as present - Subjective Interval history: doing fine denies any pain fever or chill laying down , no acute complains - Constitutional Vitals: Temp Pulse Resp BP Pulse Ox 97.7 F 75 16 107/61 94 08/05/17 07:00 08/05/17 07:00 08/05/17 07:00 08/05/17 07:00 08/05/17 07:00 General appearance: Present: A&O X 1, A&O X 3, answers questions appropriately. Absent: obese, severe distress - Head Head exam: Present: atraumatic - Eye Eye exam: Present: EOMI, PERRL. Absent: scleral icterus, conjuntiva pink, sclera anicteric - Neck Neck exam general surgery: Present: full ROM, supple. Absent: tenderness, nuchal rigidity - Respiratory Respiratory exam: Present: CTAB. Absent: rales, respiratory distress, rhonchi, stridor, wheezes, tachypnea - Cardiovascular Cardiovascular exam: Present: RRR, +S1, +S2. Absent: irregular rhythm, JVD, systolic murmur, tachycardia - GI/Abdominal GI/Abdominal exam: Present: normal bowel sounds, soft. Absent: distended, firm , guarding, rebound, rigid, tenderness - Extremities Exam Extremities exam: Present: pedal edema, radial pulses palpable and symmetrical. Absent: tenderness, warm - Neurological Exam Neurological exam: Present: CN II-XII intact, oriented X3. Absent: facial droop , speech deficit Additional comments: right side weakness when compared to left side upper and lower limbs Internal Medicine: Result - Labs CBC & Chem 7: 07/31/17 05:20 08/01/17 05:25 - ABG Interpretation ABG results: PT/INR, D-dimer PT 12.1 Seconds (9.4-12.1) 07/23/17 07:10 - VTE Documentation of Mechanical Device: Graduated compression elastic hosiery Consult Discharge Plan - Plan Referrals: Jp Yan MD [Primary Care Provider] -
[2017-08-06] MEDS: *HR* Heparin 5,000 UNIT/ML VIAL SQ SCH ×2 (05:36→17:10)
[2017-08-06] MEDS: Insulin LISPRO 300 UNITS/3 ML VIAL SQ SCH ×4 (07:42→22:11)
[2017-08-06] MEDS: *HR* Metformin 500 MG TABLET PO SCH ×2 (07:42→17:06)
[2017-08-06] MEDS: amLODIPine 5 MG TABLET PO SCH ×2 (07:42→22:10)
--- NOTE | 2017-08-06 08:38 | Internal Med Progress Note ---
Date of Encounter: 08/06/17 Time of Encounter: 08:36 - Assessment and plan (1) CVA (cerebral vascular accident) Current Visit: Yes Status: Acute Assessment and plan: stable getting rehab continue present management Qualifiers: CVA mechanism: unspecified Qualified Code(s): I63.9 - Cerebral infarction, unspecified (2) Diabetes mellitus type 2, uncomplicated Current Visit: Yes Status: Chronic Assessment and plan: stable Blood sugars are reasonable well controlled continue present management Qualifiers: Diabetes mellitus nursing home insulin use: without nursing home use Qualified Code(s): E11.9 - Type 2 diabetes mellitus without complications (3) Hyperlipidemia Current Visit: Yes Status: Chronic Assessment and plan: stable no new change continue present meds Qualifiers: Hyperlipidemia type: unspecified Qualified Code(s): E78.5 - Hyperlipidemia , unspecified (4) Hypertension, essential, benign Current Visit: No Status: Chronic Assessment and plan: stable no new change continue resent medication - Subjective Interval history: No new complains feels that same no active issues - Constitutional Vitals: Temp Pulse Resp BP Pulse Ox 97.5 F L 83 16 103/57 92 08/05/17 19:00 08/05/17 19:00 08/05/17 19:00 08/05/17 19:00 08/05/17 19:00 General appearance: Present: A&O X 1, A&O X 3, answers questions appropriately. Absent: obese, severe distress - Head Head exam: Present: atraumatic - Eye Eye exam: Present: EOMI, PERRL. Absent: scleral icterus, conjuntiva pink, sclera anicteric - Neck Neck exam general surgery: Present: full ROM. Absent: tenderness, nuchal rigidity, supple - Respiratory Respiratory exam: Present: CTAB. Absent: chest wall tenderness, decreased breath sounds, rales, respiratory distress, rhonchi, stridor, wheezes, tachypnea - Cardiovascular Cardiovascular exam: Present: RRR, +S1, +S2. Absent: gallop, irregular rhythm, JVD, rubs, systolic murmur, tachycardia - GI/Abdominal GI/Abdominal exam: Present: normal bowel sounds, pulsatile mass, soft. Absent: diminished bowel sounds, distended, guarding, rebound, rigid - Extremities Exam Extremities exam: Present: radial pulses palpable and symmetrical. Absent: pedal edema, tenderness Additional comments: nails deformed - Neurological Exam Neurological exam: Present: CN II-XII intact, oriented X3. Absent: facial droop , speech deficit Additional comments: right side weakness when compared to left side otherwise no new change Internal Medicine: Result - Labs CBC & Chem 7: 07/31/17 05:20 08/01/17 05:25 - ABG Interpretation ABG results: PT/INR, D-dimer PT 12.1 Seconds (9.4-12.1) 07/23/17 07:10 - VTE Documentation of Mechanical Device: Graduated compression elastic hosiery Consult Discharge Plan - Plan Referrals: Jp Yan MD [Primary Care Provider] -
[2017-08-07 06:11] LABS: Basophils % 0.4 %; Eosinophils # 1.1 K/mcL (0.0-0.6); Eosinophils % 9.7 %; Hematocrit 44.2 % (37.5-50.1); Immature Granulocytes % 0.3 % (0-4); Lymphocytes # 1.9 K/mcL (0.6-4.6); Lymphocytes % 17.4 %; Mean Corpuscular HGB Conc 33.9 g/dL (31.6-35.5); Mean Corpuscular Hemoglobin 31.6 pg (28.0-33.3); Mean Corpuscular Volume 93.2 fL (83.0-100.0); Mean Platelet Volume 10.9 fL (9.4-12.4); Monocytes # 0.9 K/mcL (0.0-1.3); Monocytes % 8.6 %; Neutrophils # 6.9 K/mcL (1.6-8.9); Platelet Count 243 K/mcL (140-400); Red Blood Count 4.74 M/mcL (4.19-5.50); Red Cell Distribution Width 12.7 % (11.5-14.5); Segmented Neutrophils % 63.6 %
[2017-08-07 06:28] LABS: Calcium 9.6 mg/dL (8.6-10.8); Potassium 4.8 mEq/L (3.5-4.5)
[2017-08-07] MEDS: *HR* Heparin 5,000 UNIT/ML VIAL SQ SCH ×2 (08:47→18:33)
[2017-08-07] MEDS: amLODIPine 5 MG TABLET PO SCH ×2 (08:48→20:45)
[2017-08-07] MEDS: *HR* Metformin 500 MG TABLET PO SCH ×2 (08:49→17:21)
[2017-08-07] MEDS: Insulin LISPRO 300 UNITS/3 ML VIAL SQ SCH ×4 (08:52→20:51)
--- NOTE | 2017-08-07 13:34 | Internal Med Progress Note ---
Date of Encounter: 08/07/17 Time of Encounter: 13:32 - Assessment and plan (1) Stroke due to occlusion of left middle cerebral artery Current Visit: Yes Status: Acute Assessment and plan: Significant stroke. (2) Hypertension, essential, benign Current Visit: No Status: Chronic Assessment and plan: Blood pressure is well controlled (3) Diabetes mellitus type 2, uncomplicated Current Visit: Yes Status: Chronic Assessment and plan: Following blood sugars Qualifiers: Diabetes mellitus prison insulin use: without district traffic chief use Qualified Code(s): E11.9 - Type 2 diabetes mellitus without complications (4) Hyperlipidemia Current Visit: Yes Status: Chronic Assessment and plan: Noted by history Qualifiers: Hyperlipidemia type: unspecified Qualified Code(s): E78.5 - Hyperlipidemia , unspecified (5) Dyspepsia Current Visit: Yes Status: Acute Assessment and plan: Not been mentioned as a problem - Time Spent With Patient less than 15 minutes - Subjective Interval history: Not much change after devastating CVA. intermediate placement of this progress is been minimal - Constitutional Vitals: Temp Pulse Resp BP Pulse Ox 97.6 F 73 16 115/79 95 08/07/17 07:28 08/07/17 11:02 08/07/17 11:02 08/07/17 11:02 08/07/17 11:02 General appearance: Present: A&O X 1, A&O X 3, answers questions appropriately. Absent: obese, severe distress - Head Head exam: Present: atraumatic, normal inspection, normocephalic - Neck Neck exam general surgery: Present: supple, trachea midline. Absent: lymphadenopathy - Respiratory Respiratory exam: Present: CTAB. Absent: accessory muscle use, rales, rhonchi, wheezes - Cardiovascular Cardiovascular exam: Present: RRR, +S1, +S2. Absent: diastolic murmur, gallop, rubs, systolic murmur Internal Medicine: Result - Labs CBC & Chem 7: 08/07/17 05:05 08/07/17 05:05 Labs: Short CBC 08/07/17 Range/Units 05:05 WBC 10.9 (4.3-11.1) K/mcL Hgb 15.0 (12.9-16.9) g/dL Hct 44.2 (37.5-50.1) % Plt Count 243 (140-400) K/mcL Neutrophils # 6.9 (1.6-8.9) K/mcL BMP 08/07/17 05:05 Sodium 140 Potassium 4.8 H Chloride 105 Carbon Dioxide 24 BUN 33 H Creatinine 1.43 H Glucose 140 H Calcium 9.6 little chronic renal cranial failure which was noted - ABG Interpretation ABG results: PT/INR, D-dimer PT 12.1 Seconds (9.4-12.1) 07/23/17 07:10 - VTE Documentation of Mechanical Device: Graduated compression elastic hosiery Consult Discharge Plan - Plan Referrals: Jp Yan MD [Primary Care Provider] -
[2017-08-08] MEDS: *HR* Heparin 5,000 UNIT/ML VIAL SQ SCH (05:50)
[2017-08-08 07:20] VITALS: BP 114/70
[2017-08-08] MEDS: *HR* Metformin 500 MG TABLET PO SCH (10:01)
[2017-08-08] MEDS: amLODIPine 5 MG TABLET PO SCH (10:01)
[2017-08-08] MEDS: Insulin LISPRO 300 UNITS/3 ML VIAL SQ SCH ×2 (10:02→12:38)
--- NOTE | 2017-08-08 11:19 | Discharge Summary ---
Date of Encounter: 08/08/17 Time of Encounter: 11:17 - Discharge Diagnosis (1) Stroke due to occlusion of left middle cerebral artery Priority: Primary Status: Acute (2) Hypertension, essential, benign Priority: Secondary Status: Chronic (3) Diabetes mellitus type 2, uncomplicated Priority: Secondary Status: Chronic Qualifiers: Diabetes mellitus ocean transportation intermediary insulin use: without ocean transportation intermediary use Qualified Code(s): E11.9 - Type 2 diabetes mellitus without complications (4) Hyperlipidemia Priority: Secondary Status: Chronic Qualifiers: Hyperlipidemia type: unspecified Qualified Code(s): E78.5 - Hyperlipidemia , unspecified (5) Dyspepsia Priority: Secondary Status: Acute - Discharge Medications Home Medications: Clopidogrel [Plavix] 75 mg PO DAILY 07/23/17 [History] Insulin LISPRO [HumaLOG] 0 units SQ TIDWM 07/23/17 [History] Lisinopril [Zestril] 10 mg PO DAILY 07/23/17 [History] Lovastatin 10 mg PO DAILY 07/23/17 [History] Metformin HCl [Fortamet] 500 mg PO BIDWM 07/23/17 [History] amLODIPine [Norvasc] 5 mg PO BID 07/23/17 [History] Allergies/Adverse Reactions: 3 Allergy/AdvReac Type Severity Reaction Status Date / Time No Known Allergies Allergy Verified 07/23/17 00:10 Date of admission: 07/22/17 22:05 Primary care physician: Jp Yan Consults: 07/23/17 00:27 Consult to Occupational Therapy [CONS] Routine Comment: Evaluate, develop and implement POC Reason for Consult: CVA Consult to Physical Therapy [CONS] Routine Comment: Evaluate, develop and implement POC Reason for Consult: CVA Consult to Recreational Therapy [CONS] Routine Comment: Evaluate, develop and implement POC Consult to Industrial Psychology Professor [CONS] Routine Reason for SW Consult: CVA Consult to Speech Therapy [CONS] Routine Comment: Evaluate, develop and implement POC Reason for Consult: speech impairment; CVA Call Completed: Yes 07/25/17 12:00 Consult to Psychology [CONS] Routine Consulting Provider: Marjorie Brandt Reason for Consult: CVA Time Notified: 12:00 Call Completed: No Discharging clinician: Teofilo Ng Anticipated date of discharge: 08/08/17 - Patient Status Disposition: Transfer SNF Condition: Serious Functional capacity at discharge: wheelchair bound Overall status at discharge: patient is not back to baseline - Discharge Instructions Follow Up With: Jp Yan MD [Primary Care Provider] - - Diet and Activity Activity: as per physical therapy Diet: diabetic diet Interval History: This patient was hospitalized for transfer after suffering an ischemic stroke from the MCA. He is made minimal progress and his significantly affected. Includes cognitive as well as physical Hospital course: Mr. Martinez is a 81 year old male Is made minimal progress and is going to an [facility] for long-term care. - Time Spent with Patient Total time spent providing and/or coordinating discharge services: - Constitutional Vitals: Temp Pulse Resp BP Pulse Ox 97.9 F 71 15 114/70 94 08/08/17 07:19 08/08/17 07:19 08/08/17 07:19 08/08/17 07:19 08/08/17 07:19 General appearance: Present: A&O X 1, A&O X 3, answers questions appropriately. Absent: obese, severe distress - Head Head exam: Present: atraumatic, normal inspection, normocephalic - Neck Neck exam general surgery: Present: supple, trachea midline. Absent: lymphadenopathy - Respiratory Respiratory exam: Present: CTAB. Absent: accessory muscle use, rales, rhonchi, wheezes - Cardiovascular Cardiovascular exam: Present: RRR, +S1, +S2. Absent: diastolic murmur, gallop, rubs, systolic murmur - VTE Documentation of Mechanical Device: Graduated compression elastic hosiery
--- NOTE | 2017-08-08 11:22 | Physician Discharge Referral ---
ExtendedCare Referral Info Transfer To: ECF Provider in Charge after Transfer: PCP Institutional Level of Care: Skilled - Diagnosis (1) Stroke due to occlusion of left middle cerebral artery Priority: Primary Status: Acute (2) Hypertension, essential, benign Priority: Secondary Status: Chronic (3) Diabetes mellitus type 2, uncomplicated Priority: Secondary Status: Chronic (4) Hyperlipidemia Priority: Secondary Status: Chronic (5) Dyspepsia Priority: Secondary Status: Acute Prognosis: Poor Aware of Diagnosis: Family Aware of Prognosis: Family - Transfer Medications Home Medications: Clopidogrel [Plavix] 75 mg PO DAILY 07/23/17 [History] Insulin LISPRO [HumaLOG] 0 units SQ TIDWM 07/23/17 [History] Lisinopril [Zestril] 10 mg PO DAILY 07/23/17 [History] Lovastatin 10 mg PO DAILY 07/23/17 [History] Metformin HCl [Fortamet] 500 mg PO BIDWM 07/23/17 [History] amLODIPine [Norvasc] 5 mg PO BID 07/23/17 [History] Allergies/Adverse Reactions: 3 Allergy/AdvReac Type Severity Reaction Status Date / Time No Known Allergies Allergy Verified 07/23/17 00:10 - Respiratory Orders Smoking Cessation: Smoking cessation has been advised. For more information, call the [place] Tobacco Quit Line at 9-615-IATBNOW. - Mobility Orders Chair - Rehabiliation Orders Rehab Potential: Poor Rehab Orders: Evaluation for Physical Therapy, Evaluation for Occupational Therapy, Evaluation for Speech Therapy - Treatments Skin tear care topically daily PRN per policy, May check for fecal impaction rectally daily PRN, Fleet enema rectally every other day PRN cleansing purposes - Diet Orders No Concentrated Sweets CERTIFICATION: I certify that the transfer of the above named patient to an Extended Care Facility is necessary for the continuing treatment of the diagnosis listed. The above information is true and accurate reflection of patient's current condition. Confidential - Redisclosure prohibited without a patient's written consent.
== END 2017-08-08 15:10 | DRG 57 ==
LOC: INPGRE 07-22 22:05
PROVIDERS: ADMIT Internal Medicine; ATTEND Internal Medicine